=== PATIENT | female | born 1945 | race Caucasian/White ===

== ENCOUNTER 2016-07-06 10:54 | Emergency (ER) | payer OTHER ==
--- NOTE | ~2016-07-06 | CR72 ---
[facility]. [facility] A Service of [facility] & [facility] / [facility] RADIOLOGY TEXT RESULTS PATIENT: MAHNAZ BOWIE LOCATION: SED : 49 UNIT #: [id number] AGE: [address]: Newton Da Silva MD SEX: F ORDER DR: [id number] [place] [id number] MR#: [id number] Acc #: [id number] NAME: MAHNAZ BOWIE : 1945 SEX: F STUDY DATE/TIME: 07/06/2016 10:30 UNIT: SED ROOM: STUDY DESCRIPTION: CR Chest Single View Portable Attending Physician: Newton Da Silva M.D. Ordering Physician: Newton Da Silva M.D. Primary Care Physician: Gerhard Chow M.D. MEDICAL IMAGING REPORT This report is preliminary unless electronic signature is present. EXAM Portable chest HISTORY Chest pressure, fatigue and vomiting for the past 3 days. TECHNIQUE A single AP view of the chest was obtained. FINDINGS Mild cardiomegaly is noted. The aorta is tortuous and ectatic. Both lungs are clear with normal vascular markings. No pleural fluid is seen. IMPRESSION Cardiomegaly with atherosclerotic changes in the aorta. No active pulmonary disease. Dictated by... Wilber oMody M.D. THIS IS AN ELECTRONICALLY VERIFIED REPORT Wilber Moody M.D. at 07/06/2016 3:27 PM SHERIDAN/dougie TD: 07/06/2016 13:29 JOB #: [id number] MEDICAL IMAGING REPORT
--- NOTE | ~2016-07-06 | EKG ---
PATIENT: MAHNAZ BOWIE UNIT #: [id number] Ventricular Rate: 92 BPM Atrial Rate: 92 BPM P-R Interval: 152 ms QRS Duration: 82 ms Q-T Interval: 370 ms QTC Calculation(Bezet): 457 ms P [place]: 47 degrees Calculated R [place]: -28 degrees Calculated T [place]: 60 degrees Diagnosis Line: Normal sinus rhythm Diagnosis Line: Normal ECG Diagnosis Line: No previous ECGs available Diagnosis Line: Confirmed by VIJAY GERMAN MD ([id number]) on 07/06/2016 Diagnosis Line: 4:43:42 PM INTERPRETING MD: MONSERRAT THOMAS
[2016-07-06 10:29] LABS: BASOPHIL# 0.1 X10e3 (0-0.3); BASOPHIL% 0.9 % (0-2.5); EOSINOPHIL# 0.3 X10e3 (0-0.7); EOSINOPHIL% 3.1 % (0.0-7.0); HEMATOCRIT 44.9 % (35.0-45.0); HEMOGLOBIN 14.7 gm/dL (12.0-16.0); LYMPHOCYTE# 4.1 X10e3 (1.0-3.5); MEAN CELL VOLUME 86.2 FL (83-96); MEAN CORPUSCULAR HEMOGLOBIN 28.2 PG (28-34); MEAN CORPUSCULAR HGB CONC 32.8 g/dL (30-36); MEAN PLATELET VOLUME 8.2 FL (6.5-11.5); MONOCYTE# 0.8 X10e3 (0-1.0); MONOCYTE% 8.7 % (3.0-12.0); NEUTROPHIL# 3.5 X10e3 (1.5-7.1); NEUTROPHIL% 40.3 % (40-75); PLATELET COUNT 267 X10e3 (140-420); RED BLOOD COUNT 5.21 X10e (3.90-5.30); RED CELL DISTRIBUTION WIDTH 14.6 % (11.0-15.5); WHITE BLOOD COUNT 8.8 X10e3 (4.0-10.5)
[2016-07-06 10:31] LABS: DIFF IND NO
[2016-07-06 10:39] LABS: PROTHROMBIN TIME (PATIENT) 11.6 SECONDS (9.5-12.4)
[2016-07-06 10:43] LABS: POC - CKMB 1.3 ng/mL (0.0-7.9); POC - MYOGLOBIN 70.5 ng/mL (0.0-169.0); POC - TROPONIN <0.05 ng/mL (<=0.05)
[2016-07-06 10:48] LABS: ALBUMIN SERUM 4.1 g/dL (3.5-5.0); ALKALINE PHOSPHATASE 60 U/L (32-92); ALT (SGPT) 19 U/L (10-40); AST (SGOT) 22 U/L (10-42); BILIRUBIN, DIRECT 0.2 mg/dL (0.0-0.2); BILIRUBIN,INDIRECT 0.8 mg/dL (0.0-0.9); BLOOD UREA NITROGEN 14 mg/dL (9-23); CALCIUM SERUM 8.9 mg/dL (8.4-10.2); CARBON DIOXIDE 25 mmol/L (22-31); CHLORIDE 103 mmol/L (100-111); CREATININE SERUM 0.8 mg/dL (0.6-1.4); GLOM FILT RATE Estimated ABOVE60 mL/min (>60); GLUCOSE FASTING 143 mg/dL (70-110); PARTIAL THROMBOPLASTIN TIME 23.5 SECONDS (25.6-38.1); POTASSIUM 3.6 mmol/L (3.5-5.1); PROTEIN TOTAL SERUM 7.6 g/dL (6.0-8.3); SODIUM 138 mmol/L (135-145)
[~2016-07-06 10:54] MED LIST: ESTRACE PO; ESTROGEN; FLOMAX0.4 M1 PO; NAPROXEN PO; VICODIN 5/500 T1 TAB PO; ZANTAC PO
[2016-07-06 12:48] LABS: POC - CKMB 1.1 ng/mL (0.0-7.9); POC - MYOGLOBIN 66.2 ng/mL (0.0-169.0)
[2016-07-06 12:49] LABS: POC - TROPONIN <0.05 ng/mL (<=0.05)
[2016-07-06] MEDS ORDERED: IMDUR-ER30 M2 PO (14:10)
[2016-07-06] MEDS ORDERED: NORCO1 TAB 10/3 PO (14:11)
== END 2016-07-06 14:08 | disposition home or self-care (01) ==
LOC: SED 10:54
PROVIDERS: Emergency Medicine
DX: I20.9 Angina pectoris, unspecified (principal); I10 Essential (primary) hypertension; K21.9 Gastro-esophageal reflux disease without esophagitis; Z90.49 Acquired absence of other specified parts of digestive tract; Z90.710 Acquired absence of both cervix and uterus; Z98.890 Other specified postprocedural states; Z88.5 Allergy status to narcotic agent; Z87.891 Personal history of nicotine dependence
CPT/HCPCS: 36415; 71010; 80048; 80076; 82553; 83874; 84484; 85025; 85610; 85730; 93005; 96374; 96375; 99284; J1170; J1200; J2405